=== PATIENT | male | born 1995 | race Hispanic/Latino ===

== ENCOUNTER 2017-10-10 16:17 | Emergency (ER) | payer BC ==
[2017-10-10 16:34] VITALS: BMI 40.2
[2017-10-10 16:37] VITALS: BP 125/80; PULSE 93; RESP 16; TEMP 97.9; O2SAT 98
--- NOTE | 2017-10-10 16:44 | ED PDOC ---
HPI: Psych/Substance Abuse Time Seen by Provider: 10/10/17 16:30 Chief Complaint (Nursing): Psychiatric Evaluation Chief Complaint (Provider): Suicidal Ideation History Per: Patient History/Exam Limitations: no limitations Current Symptoms Are (Timing): Still Present Suicide/Self Injury Attempted (Context): None Associated Symptoms: Suicidal Thoughts Additional Complaint(s): 21 year old male with a past medical history of aspergers and depression with psychotic features is brought into the emergency department for statement of suicidal gestures. As per mother, patent stated that he wanted to jump out of window. Patient reports that he has been very upset because he lost friendships that he recently made this year. He reports that he was not serious about the statement he made and does not have any suicidal ideation currently. Patient states that apart from marijuana use he has no history of drugs or alcohol. Of not: patient follows with psychiatrist and therapist outpatient. Past Medical History Reviewed: Historical Data, Nursing Documentation, Vital Signs Vital Signs: Last Vital Signs Temp 97.9 F 10/10/17 16:31 Pulse 93 H 10/10/17 16:31 Resp 16 10/10/17 16:31 BP 125/80 10/10/17 16:31 Pulse Ox 98 10/10/17 16:31 - Medical History PMH: Anxiety Other PMH: aspergers - Surgical History Surgical History: No Surg Hx - Family History Family History: States: Unknown Family Hx - Living Arrangements Living Arrangements: With Family - Social History Current smoker - smoking cessation education provided: No Alcohol: None Drugs: Other (marijuana) - Home Medications Home Medications: Ambulatory Orders Medication Instructions Recorded No Known Home Med 12/08/15 - Allergies Allergies/Adverse Reactions: Allergies Allergy/AdvReac Type Severity Reaction Status Date / Time No Known Allergies Allergy Verified 12/08/15 11:17 Review of Systems Psych: Positive for: Suicidal ideation Physical Exam - Physical Exam Appears: Positive for: Non-toxic, No Acute Distress (tearful in ED) Head Exam: Positive for: NORMAL INSPECTION Skin: Positive for: Normal Color, Warm, Dry. Negative for: Rash Eye Exam: Positive for: Normal appearance, EOMI, PERRL Cardiovascular/Chest: Positive for: Regular Rate, Rhythm, Chest Non Tender. Negative for: Tachycardia Respiratory: Positive for: Normal Breath Sounds. Negative for: Rales, Rhonchi, Wheezing, Respiratory Distress Gastrointestinal/Abdominal: Positive for: Normal Exam, Bowel Sounds, Soft. Negative for: Tenderness, Mass, Guarding, Rebound Neurologic/Psych: Positive for: Alert, Oriented, Mood/Affect (tearful), Gait. Negative for: Motor/Sensory Deficits - ECG O2 Sat by Pulse Oximetry: 98 (RA) Pulse Ox Interpretation: Normal - Progress ED Course And Treament: seen by crisis d/w Dr. JOHNSTON; d/c home Diagnosis Anxiety Medical Decision Making Medical Decision Makin Initial Impression 21 year old male presenting with suicidal ideation Initial Plan: * Reevaluation Documented by Charo French acting as a scribe for Nickie Arias MD. All medical record entries made by the Scribe were at my direction and personally dictated by me. I have reviewed the chart and agree that the record accurately reflects my personal performance of the history, physical exam, medical decision making, and the department course for this patient. I have also personally directed, reviewed, and agree with the discharge instructions and disposition. Disposition - Clinical Impression Clinical Impression: Anxiety - Patient ED Disposition Is Patient to be Admitted: No - Disposition Disposition: Routine/Home Disposition Time: 17:32 Condition: FAIR Instructions: Anxiety, Adult (DC) Forms: [facility] ED School/Work Excuse
== END 2017-10-10 18:02 | disposition home or self-care (01) ==
LOC: H.ER 16:17
DX: F41.9 Anxiety disorder, unspecified (principal); F84.5 Asperger's syndrome

== ENCOUNTER 2018-02-05 21:58 | Emergency (ER) | payer BC ==
[2018-02-05 21:59] VITALS: BMI 40.2
[2018-02-05 22:06] VITALS: RESP 18
--- NOTE | 2018-02-05 22:26 | ED PDOC ---
HPI: Abdomen Time Seen by Provider: 02/05/18 22:08 Chief Complaint (Nursing): Abdominal Pain Chief Complaint (Provider): Bleeding from surgical wound History Per: Patient History/Exam Limitations: no limitations Additional Complaint(s): 22 y/o male with history of obesity s/p gastric sleeve on 01/28/[address] [facility] [address] Dr. Mancuso, reporting sudden onset bleeding from umbilical surgical wound. Patient reports that a couple hours ago he felt a popping sensation with minor bleeding. Just prior to arrival however the wound began to bleed more profusely. He denies any pain or active bleeding on arrival. He reports he had an uneventful post surgery recovery. Patient is tolerating food and fluids, reports normal bowel movements and denies abdominal pain. PMD: Fidelina Past Medical History Reviewed: Historical Data, Nursing Documentation, Vital Signs Vital Signs: Last Vital Signs Temp 98.4 F 02/05/18 22:03 Pulse 108 H 02/05/18 22:03 Resp 18 02/05/18 22:03 BP 114/52 L 02/05/18 22:03 Pulse Ox 98 02/05/18 22:03 - Medical History PMH: Anxiety Denies: Diabetes, Hepatitis, HIV, HTN, Seizures, Sexually Transmitted Disease - Surgical History Other surgeries: Gastric Sleeve - Family History Family History: States: No Known Family Hx, Unknown Family Hx - Social History Current smoker - smoking cessation education provided: No - Home Medications Home Medications: Ambulatory Orders Medication Instructions Recorded RX: No Known Home Med 12/08/15 - Allergies Allergies/Adverse Reactions: Allergies Allergy/AdvReac Type Severity Reaction Status Date / Time No Known Allergies Allergy Verified 12/08/15 11:17 Review of Systems ROS Statement: Except As Marked, All Systems Reviewed And Found Negative (as per HPI otherwise negative) Gastrointestinal: Positive for: Other (bleeding from umbilical surgical site). Negative for: Abdominal Pain, Diarrhea, Constipation Physical Exam - Reviewed Nursing Documentation Reviewed: Yes Vital Signs Reviewed: Yes - Physical Exam Appears: Positive for: Well, No Acute Distress Skin: Positive for: Warm, Dry Gastrointestinal/Abdominal: Positive for: Soft, Other (large resolving ecchymosis surrounding umbilicus in a circular pattern; 3 cm horizonal wound just superior to umbilcus with dried blood; gaping 1mm hemostatic; other surgical wounds appear clean, dry, and intact.) Neurologic/Psych: Positive for: Alert. Negative for: Motor/Sensory Deficits - ECG O2 Sat by Pulse Oximetry: 98 (RA) Pulse Ox Interpretation: Normal Medical Decision Making Medical Decision Making: Time: 22:25 Initial Impression: Wound dehiscence. Initial Plan: * Surgery resident called for further evaluation 12am Evaluated by Surgery resident who d/w Dr Gottlieb. Pt to be discharged and follow up private surgeon. Pt's wound hemostatic and advised to minimize any further trauma to area. Dressed with sterile bandage. Scribe Attestation: Documented by Ayan Brock acting as a scribe for Tiffanie Garcia MD. Provider Scribe Attestation: All medical record entries made by the Scribe were at my direction and personally dictated by me. I have reviewed the chart and agree that the record accurately reflects my personal performance of the history, physical exam, medical decision making, and the department course for this patient. I have also personally directed, reviewed, and agree with the discharge instructions and disposition. Disposition - Clinical Impression Clinical Impression: Postoperative wound dehiscence - Disposition Referrals: Lokesh Mancuso MD [Medical Doctor] - 02/07/18 Disposition: Routine/Home Disposition Time: 00:00 Condition: STABLE Additional Instructions: FOLLOW UP WITH YOUR SURGEON ON WEDNESDAY FOR FURTHER EVALUATION. PLEASE CALL YOUR SURGEON'S SERVICE NOW TO BE GIVEN FOLLOWUP INSTRUCTIONS. AVOID ANY LIFTING OR STRENUOUS ACTIVITY OR TRAUMA TO THE WOUND. IF IT BLEEDS, PLACE CONTINUOUS PRESSURE FOR 20 MINUTES. IF IT CONTINUES TO BLEED AFTER THAT, GO TO ER. Instructions: Wound Dehiscence (DC)
[2018-02-06 00:10] VITALS: BP 130/78; PULSE 81; TEMP 97.1
--- NOTE | 2018-02-06 00:10 | CP.PCM.CON ---
History of Present Illness - History of Present Illness History of Present Illness: General Surgery consult for Dr. Gottlieb Consulted for partial wound dehiscence of umbilical port site POD 8 s/p gastric sleeve [Patient is a 22 yr old male with pmh obesity, anxiety and ADHD who presents to [facility] ED POD 8 s/p laparoscopic gastric sleeve at [facility] with c/o dark blood draining from his umbilical incision beginning this afternoon while walking. He states he felt a slight pop and began to notice the blood shortly afterwards. He endorses mild pain at the umbilical incision but otherwise denies fox, f/c, n/v, CP, SOB, abdominal pain, stool changes and extremity pain or weakness. PMH: obesity, ADHD, anxiety PSH: Laparoscopic gastric sleeve (01/28/18), knee surgery Social: denies All: nkda Review of Systems - Review of Systems All systems: reviewed and no additional remarkable complaints except (as per HPI) Past Patient History - Infectious Disease Hx of Infectious Diseases: None - Tetanus Immunizations Tetanus Immunization: Up to Date - Past Medical History & Family History Past Medical History?: No - Past Social History Smoking Status: Never Smoked - CARDIAC Hx Hypertension: No - PULMONARY Hx Tuberculosis: No - NEUROLOGICAL Hx Seizures: No - HEMATOLOGICAL/ONCOLOGICAL Hx Human Immunodeficiency Virus (HIV): No - GENITOURINARY/GYNECOLOGICAL Hx Sexually Transmitted Disorders: No - PSYCHIATRIC Hx Anxiety: Yes Hx Substance Use: No - SURGICAL HISTORY Other/Comment: Knee surgery - ANESTHESIA Hx Anesthesia: Yes Hx Anesthesia Reactions: No Meds Allergies/Adverse Reactions: Allergies Allergy/AdvReac Type Severity Reaction Status Date / Time No Known Allergies Allergy Verified 12/08/15 11:17 Physical Exam - Constitutional Appears: Well, Non-toxic, No Acute Distress - Head Exam Head Exam: ATRAUMATIC, NORMOCEPHALIC - Eye Exam Eye Exam: EOMI - ENT Exam ENT Exam: Mucous Membranes Moist - Respiratory Exam Respiratory Exam: NORMAL BREATHING PATTERN - Cardiovascular Exam Cardiovascular Exam: REGULAR RHYTHM - GI/Abdominal Exam GI & Abdominal Exam: Soft. absent: Distended, Guarding, Rebound, Rigid, Tenderness Additional comments: mild tenderness at the umbilical incision, incision probed to 5mm, wound intact below this point - Extremities Exam Extremities exam: Positive for: pedal pulses present. Negative for: calf tenderness, pedal edema - Neurological Exam Neurological exam: Alert, Oriented x3 - Psychiatric Exam Psychiatric exam: Normal Affect, Normal Mood - Skin Skin Exam: Dry, Warm Additional comments: ecchymotic area surrounding umbilicus, appears to be healing well Results - Vital Signs Recent Vital Signs: Last Vital Signs Temp 98.4 F 02/05/18 22:03 Pulse 108 H 02/05/18 22:03 Resp 18 02/05/18 22:03 BP 114/52 L 02/05/18 22:03 Pulse Ox 98 02/05/18 22:29 Assessment & Plan - Assessment and Plan (Free Text) Assessment: 22 yr old male s/p gastric sleeve POD 8 with superficial wound dehiscence Plan: cover incision with dressing maintain hemostasis discussed with patient to follow up with bariatric surgeon Wednesday in office discussed with patient contacting answering service to update his surgeon discussed with patient reasons to return to the nearest ED such as but not limited to fevers, chills, nausea, vomiting, increasing abdominal pain and stool changes will d/w Dr. Bull Young, PGY 1 - Date & Time Date: 02/05/18 Time: 23:00
[2018-02-07 15:49] VITALS: O2SAT 98
== END 2018-02-06 00:20 | disposition home or self-care (01) ==
LOC: H.ER 21:58
DX: T81.31XA Disruption of external operation (surgical) wound, not elsewhere classified, initial encounter (principal); Z98.890 Other specified postprocedural states; Z98.84 Bariatric surgery status; E66.9 Obesity, unspecified